=== PATIENT | female | born 1955 | race Caucasian/White ===

== ENCOUNTER 2017-05-19 09:46 | Day surgery (SDC) | payer OTHER ==
[~2017-05-19 09:46] MED LIST: ACETAMINOPHEN 1000 MG/100 ML IVPB; LIDOCAINE 2% (SDV) 5 ML INJ
[2017-05-19] MEDS ORDERED: CEFAZOLIN 2 GM/50 ML (PMX) 50 ML IVPB (11:00)
[2017-05-19] MEDS ORDERED: PROPOFOL 100 ML (12:18)
[2017-05-19] MEDS ORDERED: morphine SULFATE/PF (10 MG/10 ML) INJ (12:21)
[2017-05-19] MEDS ORDERED: EPINEPHrine 0.1 MG/ML SYG (12:21)
[2017-05-19] MEDS ORDERED: EPINEPHrine 1 MG INJ (12:26)
[2017-05-19] MEDS ORDERED: MEPERIDINE 25 MG INJ IV (12:30)
[2017-05-19] MEDS ORDERED: EPHEDrine SULFATE 50 MG/5 ML SYG IV (12:30)
[2017-05-19] MEDS ORDERED: LABETALOL HCL 20MG INJ IV (12:30)
[2017-05-19] MEDS ORDERED: hydrALAzine 20 MG INJ IV (12:30)
[2017-05-19] MEDS ORDERED: HYDROmorphONE (0.2 MG/ML) 10ML SYG IV ×2 (12:30)
[2017-05-19] MEDS ORDERED: DIPHENHYDRAMINE 50 MG INJ IV (12:30)
[2017-05-19] MEDS ORDERED: FENTAnyl 50 MCG/ML VIAL IV ×2 (12:30)
[2017-05-19] MEDS ORDERED: OXYCODONE/ACETAMINOPHEN (5/325) TAB PO ×2 (12:30)
[2017-05-19] MEDS ORDERED: KETOROLAC 30 MG INJ IV (12:30)
[2017-05-19] MEDS ORDERED: MIDAZOLAM 1 MG/ML 2 ML INJ IV (12:30)
[2017-05-19] MEDS ORDERED: DEXAMETHASONE 4 MG/ML 1 ML INJ (12:49)
[2017-05-19] MEDS ORDERED: ROCURONIUM 50 MG INJ (12:50)
[2017-05-19] MEDS ORDERED: ONDANSETRON 4 MG INJ (12:50)
[2017-05-19] MEDS ORDERED: CEFAZOLIN 1 GM INJ (12:50)
[2017-05-19] MEDS: morphine SULFATE/PF (10 MG/10 ML) INJ EPI (13:45)
[2017-05-19] MEDS ORDERED: NEOSTIGMINE 3 MG/3 ML SYRINGE (13:54)
[2017-05-19] MEDS ORDERED: GLYCOPYRROLATE 0.4 MG INJ (13:54)
[2017-05-19] MEDS ORDERED: HYDROCODONE/APAP (5/325) TAB PO ×2 (14:00)
[2017-05-19] MEDS: ONDANSETRON 4 MG INJ IV (14:06)
[2017-05-19] MEDS: FENTAnyl 50 MCG/ML VIAL IV (14:07)
[2017-05-19] MEDS: HYDROmorphONE (0.2 MG/ML) 10ML SYG IV (14:07)
[2017-05-19] MEDS: ALBUTEROL 0.083% (NEB) 2.5 MG/3 ML AMP HHN ×2 (15:06→15:15)
[2017-05-19] MEDS: METOCLOPRAMIDE 10 MG INJ IV (16:06)
== END 2017-05-19 17:22 | disposition home or self-care (01) ==
LOC: SDS 09:46
DX: I10 Essential (primary) hypertension (principal); E11.9 Type 2 diabetes mellitus without complications; R94.31 Abnormal electrocardiogram [ECG] [EKG]; Z79.84 Long term (current) use of oral hypoglycemic drugs; M23.200 Derangement of unspecified lateral meniscus due to old tear or injury, right knee; M23.211 Derangement of anterior horn of medial meniscus due to old tear or injury, right knee; M94.261 Chondromalacia, right knee; M65.861 Other synovitis and tenosynovitis, right lower leg
CPT/HCPCS: 29880; 82962; 94664; 97162